=== PATIENT | female | born 1990 | race African-American/Black ===

== ENCOUNTER 2022-03-26 08:47 | Emergency (ER) | payer SELFPAY ==
[~2022-03-26] VITALS: Ht 144.8 cm; Wt 58.0 kg
[2022-03-26 09:20] VITALS: BP 95/48
== END 2022-03-26 10:05 | disposition home or self-care (01) ==
LOC: ER 08:47
DX: G40.909 Epilepsy, unspecified, not intractable, without status epilepticus (principal); R53.1 Weakness; R42 Dizziness and giddiness; F41.9 Anxiety disorder, unspecified; J45.909 Unspecified asthma, uncomplicated
CPT/HCPCS: 99283